=== PATIENT | female | born 1980 | race Hispanic/Latino ===

== ENCOUNTER 2017-04-08 19:32 | Emergency (ER) | payer SELFPAY ==
[2017-04-08 19:42] VITALS: BP 123/68; PULSE 118; RESP 18; O2SAT 98
--- NOTE | 2017-04-08 20:15 | ED.REPORT ---
HPI-Dental/Mouth Prob Date of Service Apr 08, 2017 ED Provider: History of Present Illness: Right upper second molar pain 4 days. Palpable fever. No nausea or vomiting. No history of dental infections. She has appointment with the dentist on Sunday. That tooth is broken. Nursing Notes Stated Complaint: FEVER,DENTAL PAIN,PROBLEMS EATING/TALKING Chief Complaint: Dental Nursing Notes Reviewed: Yes Allergies: Coded Allergies: No Known Allergies (Unverified Allergy, Unknown, 04/08/17) Scheduled Penicillin V Potassium (Penicillin V Potassium) 500 Mg Tablet 500 MG PO QID Scheduled PRN Tramadol (Tramadol) 50 Mg Tablet 50 MG PO Q4H PRN PRN For Pain General Time Seen by MD: 20:08 Chief Complaint Tooth chipped, Tooth pain Hx Obtained From: Patient Arrived By: Walk-in Onset Occurred: 4 days ago Symptom Duration: Constant Location: : Tooth upper R molar Quality: Painful Severity: Current: Severe Severity: Maximum: Severe Similar Sx Previous: No Past Medical History Past Medical History Notes: denies Review of Systems Basic Review of Systems Neurologic: NL mental status Psychiatric: Normal thought content Constitutional: Reports: Fatigue, Fever Ears / Nose / Throat: Reports: Toothache Complete sys rev & neg: except as marked. Physical Exam Initial Vital Signs Vital Signs (First) Date Time Temp Pulse Resp B/P Pulse Ox O2 Delivery O2 Flow Rate FiO2 04/08/17 19:42 36.8 118 18 123/68 98 Room Air Initial VS: Reviewed, Vital signs normal General/Constitutional: Well-developed, Well-nourished Head / Eyes: Atraumatic, Normocephalic, PERRL Respiratory: Breath sounds normal, Clear to auscultation, No respiratory distress Cardiovascular: Regular rate & rhythm, Heart sounds normal, Intact distal pulses Skin: Warm, Dry, No cyanosis Neurologic: Alert, Oriented, Nonfocal Psychiatric: Mood/affect normal, Behavior normal, Normal thought content ENT: Atraumatic, Airway patent, Mucous membranes moist, Pharynx NL, No pooling of secretions, No trismus, Tympanic membs NL, Ext aud canal NL, No facial swelling, Gums/dentition NL Dental / Gums: Positive: Decay single tooth, Tooth fracture Right second molar tooth pain Discharge & Departure Primary Impression: Toothache Disposition: Home Discharge Condition Condition: Stable Patient Instructions: Dental Abscess (ED) Additional Instructions: Take your antibiotics as prescribed. Use tramadol for pain as needed. No hot or cold beverages and eat on the other side of the mouth. Make sure you follow up with your dentist on Sunday Referrals: Jun Sanz MD (PCP) EDSupervising Provider for [facility]: Gil Akhtar Linnea K ARNP Apr 08, 2017 20:15
[2017-04-08] MEDS ORDERED: PENI500T PO (20:16)
[2017-04-08] MEDS ORDERED: TRAM50TA2 PO (20:16)
== END 2017-04-08 20:34 | disposition home or self-care (01) ==
LOC: SED 19:32
DX: K08.89 Other specified disorders of teeth and supporting structures (principal)